=== PATIENT | male | born 1990 | race Caucasian/White ===

== ENCOUNTER 2017-12-25 17:15 | Emergency (ER) | payer OTHER ==
[2017-12-25] MEDS ORDERED: SODIUM CHLORIDE 0.9% 500 ML IV STA (17:21)
[2017-12-25] MEDS ORDERED: SODIUM CHLORIDE 0.9% 1,000 ML IV STA (17:21)
[2017-12-25] MEDS ORDERED: Acetaminophen-Codeine 300-30mg TAB PO STA (17:22)
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
[2017-12-25 18:31] LABS: Appearance,Urine Clear (Clear); Bilirubin,Urine Negative (Negative); Blood,Urine Negative (Negative); Color,Urine Light Yellow; Glucose,Urine (UA) Negative (Negative); Ketones,Urine Trace (Negative); Leukocyte Esterase,Urine Negative (Negative); Nitrite,Urine Negative (Negative); Protein,Urine Negative (Negative); Specific Gravity,Urine 1.001 (1.001-1.035); Urobilinogen,Urine <2.0 mg/dL (<2.0)
[2017-12-25 18:36] LABS: Basophils % (A) 0 %; Eosinophils % (A) 0 %; HCT 44.7 % (39.0-53.0); HGB 15.1 gm/dL (13.0-17.5); Lymphocytes # (A) 1.4 k/uL (1.0-4.8); Lymphocytes % (A) 8 %; MCH 29.6 pg (25.0-35.0); MCHC 33.8 g/dL (31.0-37.0); MCV 87.5 fL (80.0-100.0); Mean Platelet Volume 7.6; Monocytes # (A) 0.8 k/uL (0-1.0); Monocytes % (A) 5 %; Neutrophils # (A) 15.6 k/uL (1.3-7.7); Neutrophils % (A) 87 %; Platelet Count 219 k/uL (150-450); RDW 12.8 % (11.5-15.5)
[2017-12-25 18:42] LABS: Amphetamine Screen,Urine Not Detected (NotDetected); Barbiturate Screen,Urine Not Detected (NotDetected); Benzodiazepines Screen,Urine Not Detected (NotDetected); Cocaine Screen,Urine Not Detected (NotDetected); Methadone Screen, Urine Not Detected (NotDetected); Opiate Screen,Urine Not Detected (NotDetected); Oxycodone Screen, Urine Not Detected (NotDetected); Phencyclidine Screen,Urine Not Detected (NotDetected); Tricyclic Antidepressant,Urine Not Detected (NotDetected); Urn Cannabinoid Scrn Not Detected (NotDetected)
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
[2017-12-25 18:54] LABS: INR 1.2 (<1.2); Partial Thromboplastin Time 22.9 sec (22.0-30.0); Prothrombin Time 11.2 sec (9.0-12.0)
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
[2017-12-25 18:56] LABS: ALT 37 U/L (21-72); AST 33 U/L (17-59); Albumin 4.5 g/dL (3.5-5.0); Alcohol <10 mg/dL; Alkaline Phosphatase 88 U/L (38-126); Anion Gap 14 mmol/L; Blood Urea Nitrogen 9 mg/dL (9-20); Calcium 9.6 mg/dL (8.4-10.2); Carbon Dioxide 23 mmol/L (22-30); Chloride 97 mmol/L (98-107); Glucose 88 mg/dL (74-99); Potassium 3.8 mmol/L (3.5-5.1); Sodium 134 mmol/L (137-145); Total Protein 6.7 g/dL (6.3-8.2)
[2017-12-25 19:04] LABS: Creatine Kinase 427 U/L (55-170)
[2017-12-25 19:11] VITALS: BP 107/56; PULSE 102; RESP 16; TEMP 97.7
[2017-12-25 19:17] LABS: Creatine Kinase MB 1.9 ng/mL (0.0-2.4); Troponin I <0.012 ng/mL (0.000-0.034)
== END 2017-12-25 19:55 | disposition home or self-care (01) ==
LOC: EC 17:15
DX: G40.909 Epilepsy, unspecified, not intractable, without status epilepticus (principal); F17.200 Nicotine dependence, unspecified, uncomplicated; Z79.899 Other long term (current) drug therapy; V48.5XXA Car driver injured in noncollision transport accident in traffic accident, initial encounter; Y92.410 Unspecified street and highway as the place of occurrence of the external cause
CPT/HCPCS: 99285; 96360; 96361; 36415; 93005; 86900; 86901; 80053; 82550; 82553; 84484; 85025; 85610; 85730; 86850; 81003; 80306; 80320; 72125; 70450; 71260; 74177; Q9967

== ENCOUNTER 2019-09-13 13:42 | Emergency (ER) | payer OTHER ==
[2019-09-13 13:48] VITALS: BP 125/84; PULSE 88; RESP 18; TEMP 97.9
[2019-09-13] MEDS ORDERED: KETOROLAC 30 MG/ML 1 ML VIAL IM STA (13:54)
--- NOTE | 2019-09-13 14:00 | ED ---
General Adult HPI - General Chief complaint: Extremity Problem,Nontraumatic Stated complaint: right wrist injury Time Seen by Provider: 09/13/19 13:49 Source: patient, RN notes reviewed, old records reviewed Mode of arrival: ambulatory Limitations: no limitations - History of Present Illness Initial comments: 29 -year-old male presenting for evaluation of right wrist pain. Patient states over the past several weeks he's noticed several small knots adjacent to his right wrist and forearm. He's noticed 1 on the medial aspect, one on the mid dorsal aspect and one on the lateral aspect of the right distal wrist. He's noted increased pain at these locations for the past several weeks. Denies fever or chills. He has appreciated some swelling in the area. No erythema. No reported injury. - Related Data Home Medications Medication Instructions Recorded Confirmed Acetaminophen-Codeine 300-30mg 1 tab PO Q6H PRN 12/25/17 12/25/17 [Tylenol w/codeine #3] Phenytoin Sodium Extended 200 mg PO BID 12/25/17 12/25/17 [Dilantin] Previous Rx's Medication Instructions Recorded Ibuprofen [Motrin] 600 mg PO Q8HR PRN #24 tab 09/13/19 Allergies Allergy/AdvReac Type Severity Reaction Status Date / Time No Known Allergies Allergy Verified 09/13/19 13:48 Review of Systems ROS Statement: Those systems with pertinent positive or pertinent negative responses have been documented in the HPI. ROS Other: All systems not noted in ROS Statement are negative. Past Medical History Past Medical History: Seizure Disorder History of Any Multi-Drug Resistant Organisms: None Reported Past Surgical History: Appendectomy Past Psychological History: No Psychological Hx Reported Smoking Status: Current every day smoker Past Alcohol Use History: Occasional Past Drug Use History: None Reported General Exam Limitations: no limitations Head exam: Present: atraumatic, normocephalic Eye exam: Present: normal appearance, PERRL Respiratory exam: Present: normal lung sounds bilaterally. Absent: respiratory distress Cardiovascular Exam: Present: regular rate, normal rhythm Extremities exam: Present: other (Right upper extremity: Patient has several subcentimeter masses noted on the distal wrist, medial, dorsal, lateral. None measuring more than 1 cm. There is no overlying erythema or induration. There is a palpable venous cord on the lateral side of the forearm from the distal wrist to the distal elbow. No significant swelling in the hand. Normal range of motion. Decreased strength secondary to pain.) Neurological exam: Present: alert, oriented X3, CN II-XII intact. Absent: motor sensory deficit Psychiatric exam: Present: normal affect, normal mood Skin exam: Present: warm, dry, intact, normal color. Absent: rash, cyanosis, diaphoretic, erythema Course Vital Signs 09/13/19 13:45 Temperature 97.9 F Pulse Rate 88 Respiratory 18 Rate Blood Pressure 125/84 O2 Sat by Pulse 99 Oximetry Medical Decision Making - Medical Decision Making 29-year-old male presenting with pain in the right wrist. He has palpable v enous cord. X-ray performed, negative for fracture or dislocation. Ultrasound is negative for DVT, positive for superficial thrombus. Patient prescribed NSAIDs and warm compresses, elevation. he is given referral for outpatient reevaluation. Will monitor for erythema, signs of cellulitis, worsening symptoms. Disposition Clinical Impression: Superficial thrombophlebitis Disposition: HOME SELF-CARE Condition: Good Instructions (If sedation given, give patient instructions): Superficial Thrombophlebitis (ED) Additional Instructions: Please return with worsening swelling of the right upper extremity, warmth or redness. Prescriptions: Ibuprofen [Motrin] 600 mg PO Q8HR PRN #24 tab PRN Reason: Pain Is patient prescribed a controlled substance at d/c from ED?: No Referrals: None,Stated [Primary Care Provider] - 1-2 days Orlando Cyr [STAFF PHYSICIAN] - 1-2 days Time of Disposition: 15:08
--- NOTE | 2019-09-13 14:50 | US ---
EXAMINATION TYPE: US venous doppler duplex UE RT DATE OF EXAM: 09/13/2019 COMPARISON: NONE CLINICAL HISTORY: DVT. Right wrist pain x couple days SIDE PERFORMED: Right Right Arm: Negative for DVT, appears positive for SVT in cephalic vein in lower arm at patient's area of concern. IMPRESSION: 1. Exam positive for superficial venous thrombosis in the cephalic vein near the level at the patient 's reported history of pain. 2. No evidence of deep venous thrombosis.
--- NOTE | 2019-09-13 14:59 | XR ---
EXAMINATION TYPE: XR forearm RT DATE OF EXAM: 09/13/2019 COMPARISON: NONE HISTORY: Pain Two views of the forearm demonstrate that the osseous structures appear to be intact and the joint sp aces appear to be preserved. There is no acute fracture or dislocation. IMPRESSION: 1. No acute fracture or dislocation
== END 2019-09-13 15:30 | disposition home or self-care (01) ==
LOC: EC 13:42
DX: I80.8 Phlebitis and thrombophlebitis of other sites (principal); G40.909 Epilepsy, unspecified, not intractable, without status epilepticus; F17.200 Nicotine dependence, unspecified, uncomplicated; Z79.899 Other long term (current) drug therapy
CPT/HCPCS: 73090; 93971; 99284; 96372; J1885

== ENCOUNTER 2019-10-24 17:07 | Emergency (ER) | payer OTHER ==
[2019-10-24] MEDS ORDERED: SODIUM CHLORIDE 0.9% 500 ML 500 ML IV STA (17:10)
[2019-10-24 17:19] VITALS: RESP 18; TEMP 98.7
[2019-10-24 17:48] LABS: Basophils % (A) 0 %; Eosinophils # (A) 0.2 k/uL (0-0.7); Eosinophils % (A) 2 %; HGB 16.1 gm/dL (13.0-17.5); Lymphocytes # (A) 2.1 k/uL (1.0-4.8); Lymphocytes % (A) 21 %; MCH 31.2 pg (25.0-35.0); MCHC 33.4 g/dL (31.0-37.0); MCV 93.4 fL (80.0-100.0); Mean Platelet Volume 8.9; Monocytes # (A) 0.4 k/uL (0-1.0); Monocytes % (A) 4 %; Neutrophils # (A) 6.9 k/uL (1.3-7.7); Neutrophils % (A) 71 %; Platelet Count 230 k/uL (150-450); RBC 5.14 m/uL (4.30-5.90); RDW 12.4 % (11.5-15.5); WBC 9.7 k/uL (3.8-10.6)
[2019-10-24 18:14] VITALS: BP 121/76; PULSE 89
--- NOTE | 2019-10-24 18:18 | ED ---
Seizure HPI - General Chief Complaint: Seizure Stated Complaint: Seizure Time Seen by Provider: 10/24/19 17:10 Source: patient, RN notes reviewed Mode of arrival: ambulatory Limitations: no limitations - History of Present Illness Initial Comments: This a 29-year-old male presents emergency Department via EMS chief complaint of seizure. Patient states he is sitting down with his significant other at this point complaining. Patient states that states that he started shaking, which was a prolonged period. Patient states he did have a tongue injury on his left side. Patient states has a history of seizures in which she supposed take Keppra and Dilantin states has not been taking her Dilantin. Patient has not recently seen neurologist. Patient denies any head injury no headache no dizziness or nausea vomiting. - Related Data Home Medications Medication Instructions Recorded Confirmed Dilantin (Unknown Strength) 1 tab PO BID 10/24/19 10/24/19 Keppra (Unknown Strength) 1 tab PO BID 10/24/19 10/24/19 Trazadone (Unknown Strength) 1 tab PO HS 10/24/19 10/24/19 Previous Rx's Medication Instructions Recorded Ibuprofen [Motrin] 600 mg PO Q8HR PRN #24 tab 09/13/19 Allergies Allergy/AdvReac Type Severity Reaction Status Date / Time No Known Allergies Allergy Verified 10/24/19 18:19 Review of Systems ROS Statement: Those systems with pertinent positive or pertinent negative responses have been documented in the HPI. ROS Other: All systems not noted in ROS Statement are negative. Past Medical History Past Medical History: Seizure Disorder History of Any Multi-Drug Resistant Organisms: None Reported Past Surgical History: Appendectomy Past Psychological History: No Psychological Hx Reported Smoking Status: Current every day smoker Past Alcohol Use History: None Reported, Occasional Past Drug Use History: None Reported General Exam Limitations: no limitations General appearance: alert, in no apparent distress Head exam: Present: atraumatic, normocephalic, normal inspection Eye exam: Present: normal appearance, PERRL, EOMI. Absent: scleral icterus, conjunctival injection, periorbital swelling ENT exam: Present: mucous membranes moist. Absent: normal oropharynx (small tongue laceration on the left) Neck exam: Present: normal inspection, full ROM. Absent: tenderness, meningismus, lymphadenopathy Respiratory exam: Present: normal lung sounds bilaterally. Absent: respiratory distress, wheezes, rales, rhonchi, stridor Cardiovascular Exam: Present: regular rate, normal rhythm, normal heart sounds. Absent: systolic murmur, diastolic murmur, rubs, gallop, clicks Neurological exam: Present: alert, oriented X3, CN II-XII intact, reflexes normal. Absent: motor sensory deficit Skin exam: Present: warm, dry, intact, normal color. Absent: rash Course Vital Signs 10/24/19 10/24/19 17:12 18:11 Temperature 98.7 F Pulse Rate 103 H 89 Respiratory 18 18 Rate Blood Pressure 133/83 121/76 O2 Sat by Pulse 98 98 Oximetry Medical Decision Making - Medical Decision Making 29-year-old male present after seizure. Patient was evaluated patient is resting comfortably in the bed and in no distress he's at his normal baseline. Patient does have a history of seizures. Patient's Dilantin level is low secondary to not taking at this time. Patient will restart Dilantin. Patient advised follow-up with neurology. He does understand that he cannot drive for 6 months and until cleared by neurology. - Lab Data Result diagrams: 10/24/19 17:35 10/24/19 18:12 Lab Results 10/24/19 10/24/19 Range/Units 17:35 18:12 WBC 9.7 (3.8-10.6) k/uL RBC 5.14 (4.30-5.90) m/uL Hgb 16.1 (13.0-17.5) gm/dL Hct 48.0 (39.0-53.0) % MCV 93.4 (80.0-100.0) fL MCH 31.2 (25.0-35.0) pg MCHC 33.4 (31.0-37.0) g/dL RDW 12.4 (11.5-15.5) % Plt Count 230 (150-450) k/uL Neutrophils % 71 % Lymphocytes % 21 % Monocytes % 4 % Eosinophils % 2 % Basophils % 0 % Neutrophils # 6.9 (1.3-7.7) k/uL Lymphocytes # 2.1 (1.0-4.8) k/uL Monocytes # 0.4 (0-1.0) k/uL Eosinophils # 0.2 (0-0.7) k/uL Basophils # 0.0 (0-0.2) k/uL Sodium 135 L (137-145) mmol/L Potassium 4.3 (3.5-5.1) mmol/L Chloride 100 (98-107) mmol/L Carbon Dioxide 29 (22-30) mmol/L Anion Gap 6 mmol/L BUN 3 L (9-20) mg/dL Creatinine 0.71 (0.66-1.25) mg/dL Est GFR (CKD-EPI)AfAm >90 (>60 ml/min/1.73 sqM) Est GFR (CKD-EPI)NonAf >90 (>60 ml/min/1.73 sqM) Glucose 87 (74-99) mg/dL Calcium 9.6 (8.4-10.2) mg/dL Total Bilirubin 0.2 (0.2-1.3) mg/dL AST 26 (17-59) U/L ALT 21 (4-49) U/L Alkaline Phosphatase 78 (38-126) U/L Total Protein 7.3 (6.3-8.2) g/dL Albumin 4.5 (3.5-5.0) g/dL Phenytoin <3.0 ug/mL - EKG Data -: EKG Interpreted by Dc EKG Comments: EKG performed at 18:07 normal sinus rhythm rate of 90 HI 154 QRS 100 QT/QTC 350/428 Disposition Clinical Impression: Generalized seizure Disposition: HOME SELF-CARE Condition: Stable Instructions (If sedation given, give patient instructions): Recurrent Seizures in Adults (ED) Additional Instructions: Please return to the Emergency Department if symptoms worsen or any other concerns. Is patient prescribed a controlled substance at d/c from ED?: No Referrals: None,Stated [Primary Care Provider] - 1-2 days Time of Disposition: 18:46
[2019-10-24 18:37] LABS: ALT 21 U/L (4-49); AST 26 U/L (17-59); African American GFR (CKD) >90 (>60 ml/min/1.73 sqM); Albumin 4.5 g/dL (3.5-5.0); Alkaline Phosphatase 78 U/L (38-126); Anion Gap 6 mmol/L; Blood Urea Nitrogen 3 mg/dL (9-20); Calcium 9.6 mg/dL (8.4-10.2); Carbon Dioxide 29 mmol/L (22-30); Chloride 100 mmol/L (98-107); Glucose 87 mg/dL (74-99); Non-African American GFR(CKD) >90 (>60 ml/min/1.73 sqM); Phenytoin (Dilantin) <3.0 ug/mL; Potassium 4.3 mmol/L (3.5-5.1); Total Bilirubin 0.2 mg/dL (0.2-1.3); Total Protein 7.3 g/dL (6.3-8.2)
[2019-10-24 18:42] LABS: Sodium 135 mmol/L (137-145)
== END 2019-10-24 19:07 | disposition home or self-care (01) ==
LOC: EC 17:07
DX: G40.409 Other generalized epilepsy and epileptic syndromes, not intractable, without status epilepticus (principal); S01.512A Laceration without foreign body of oral cavity, initial encounter; F17.200 Nicotine dependence, unspecified, uncomplicated; Z79.899 Other long term (current) drug therapy
CPT/HCPCS: 36415; 80053; 80185; 85025; 93005; 96360; 99284